=== PATIENT | male | born 1980 | race American Indian/Alaskan Native ===

== ENCOUNTER 2018-05-21 12:29 | Emergency (ER) | payer MEDICARE ==
[2018-05-21 12:53] VITALS: BP 110/69
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
[2018-05-21 15:29] LABS: Hematocrit 38.9 % (35.5-45.6); Hemoglobin 13.1 gm/dl (11.8-15.2); Mean Corpuscular HGB Conc 34 % (32-34); Mean Corpuscular Hemoglobin 31 pg (28-32); Mean Corpuscular Volume 92 fl (84-94); Platelet Count 221 K/mm3 (140-440); Red Blood Count 4.25 M/mm3 (3.65-5.03)
[2018-05-21 15:39] LABS: BUN/Creatinine Ratio 17; Blood Urea Nitrogen 17 mg/dL (9-20); Calcium 9.1 mg/dL (8.4-10.2); Hemolysis Index 30; INR 0.94 (0.87-1.13)
[2018-05-21 16:09] LABS: Total Cells Counted 100
[2018-05-21 16:10] LABS: Anisocytosis 1+; Basophils % (Manual) 0 % (0.0-1.8); Macrocytosis 1+; Ovalocytes Few; Platelet Estimate Consistent w Auto; Target Cells Few
[2018-05-21] MEDS ORDERED: TORADOL ONE (17:03)
[2018-05-21] MEDS ORDERED: TORADOL IV ONE (17:08)
--- NOTE | 2018-05-21 18:09 | Cat Scan Report ---
FINAL REPORT PROCEDURE: CT ANGIO CHEST TECHNIQUE: Computerized tomographic angiography of the chest was performed during the IV injection of iodinated nonionic contrast including image processing. The image data was postprocessed using 2-dimensional multiplanar reformatted (MPR) and 3-dimensional (MIP and/or volume rendered) techniques. HISTORY: shortness of breath, history of pulmonary embolism COMPARISON: No prior studies are available for comparison. FINDINGS: Pulmonary outflow tract, right and left main pulmonary arteries and their proximal branches: Clear, no filling defects seen to suggest pulmonary embolus. Pericardium: No evidence of pericardial effusion. Thoracic aorta: No evidence of aneurysmal dilatation or dissection. Coronary arteries: Are unremarkable. Mediastinum and hilar regions: Nonspecific subcentimeter lymph nodes are visualized. No pathologically enlarged lymph nodes or masses are identified. Lung Sanchez: There is a 9 millimeter x 5.6 millimeter x 11.8 millimeter noncalcified nodular density centered on the left major fissure superiorly image 40 series 2 axial image in sagittal image 62 series 605. No other pulmonary nodules are visualized. Small amount of linear atelectasis or scarring seen in the lung bases. No dense consolidations are visualized.. Upper abdomen: No acute or focal abnormality is seeen. Other: No acute bony abnormalities are identified. IMPRESSION: No evidence of pulmonary embolus. Noncalcified nodular density centered on the left major fissure. Correlation with prior studies would be helpful to determine stability, new finding or growth. Both benign and malignant pleural-based nodular densities could present this manner. If prior studies are unavailable PET scan could be performed for further evaluation versus short-term follow-up exam, follow-up exam in 3 months.
== END 2018-05-21 18:26 | disposition home or self-care (01) ==
LOC: ED 12:29
DX: L08.9 Local infection of the skin and subcutaneous tissue, unspecified (principal); R06.02 Shortness of breath; F17.200 Nicotine dependence, unspecified, uncomplicated; Z90.49 Acquired absence of other specified parts of digestive tract
CPT/HCPCS: 36415; 71275; 80048; 85007; 85025; 85379; 85610; 85730; 96374; 99284; J1885; Q9967